=== PATIENT | female | born 1995 | race Hispanic/Latino ===

== ENCOUNTER 2021-04-07 08:12 | Emergency (ER) | payer OTHER ==
[2021-04-07] MEDS ORDERED: Lidocaine 1% w/Epinephrine 1:100K 20 ML VIAL ONE (08:29)
[2021-04-07] MEDS ORDERED: Boostrix 0.5 ML (Tdap) VIAL ONE (08:59)
== END 2021-04-07 09:15 | disposition home or self-care (01) ==
LOC: ERS 08:12
DX: L05.01 Pilonidal cyst with abscess (principal); Z23 Encounter for immunization
CPT/HCPCS: 10080; 90471; 90715

== ENCOUNTER 2021-09-15 05:56 | Day surgery (SDC) | payer OTHER ==
[2021-09-08 11:20] VITALS: BMI 33.3
[2021-09-15] MEDS ORDERED: Fentanyl 250 MCG/5 ML VIAL ONE ×2 (07:00→09:08)
[2021-09-15] MEDS ORDERED: Scopolamine 1.5 mg/72 hour Patch ONE (07:18)
[2021-09-15] MEDS ORDERED: Midazolam HCl 2 mg/2 ml Vial ONE (07:24)
[2021-09-15] MEDS ORDERED: Bupivacaine 0.25% HCL 30 ML VIAL ONE (07:29)
[2021-09-15] MEDS ORDERED: Xylocaine 1% w/ Epi 1:100K 10 ML VIAL ONE (07:29)
[2021-09-15] MEDS ORDERED: cefOXitin 2 GM VIAL ONE (07:41)
[2021-09-15] MEDS ORDERED: Sodium Chloride 0.9% 100 ML ONE (07:42)
[2021-09-15] MEDS ORDERED: Glycopyrrolate 0.2 MG/ML 5 ML SYRINGE ONE (07:56)
[2021-09-15] MEDS ORDERED: PROPOFOL 200 MG/20 ML VIAL ONE (07:56)
[2021-09-15] MEDS ORDERED: Ondansetron PF 4 MG/2 ML Vial ONE (07:56)
[2021-09-15] MEDS ORDERED: Lidocaine 1% PF 5 ML VIAL ONE (07:56)
[2021-09-15] MEDS ORDERED: Rocuronium Bromide 10 MG/ML (10ML VIAL) ONE (07:56)
[2021-09-15] MEDS ORDERED: Ketorolac Tromethamine 30 MG/ML VIAL ONE (07:56)
== END 2021-09-15 11:10 | disposition home or self-care (01) ==
LOC: SDC 05:56
PROVIDERS: ATTEND Surgery
PROC: 0JB90ZZ Excision of Buttock Subcutaneous Tissue and Fascia, Open Approach (ICD-10-PCS; principal; 2021-09-15)
DX: L05.01 Pilonidal cyst with abscess (principal); Z79.899 Other long term (current) drug therapy
CPT/HCPCS: 88304; J0694; J1885; J2250; J2405; J2704; J3010; J3490; S0020